=== PATIENT | male | born 1995 | race Caucasian/White ===

== ENCOUNTER 2018-06-07 21:23 | Emergency (ER) | payer SELFPAY ==
[~2018-06-07] VITALS: Ht 177.8 cm; Wt 68.0 kg
[2018-06-08 01:24] LABS: BASOPHILS % 0.7 % (0.0-2.0); HEMATOCRIT. 49.3 % (42.0-52.0); HEMOGLOBIN. 16.6 g/dL (14.0-18.0); LYMPHOCYTES % 15.9 % (20.0-50.0); MEAN CORPUSCULAR HEMOGLOBIN 31.1 pg (28.0-32.0); MEAN CORPUSCULAR VOLUME 92.6 fL (80.0-94.0); MEAN PLATELET VOLUME 9.4 fl (7.4-10.4); MONOCYTES % 5.4 % (2.0-8.0); PLATELET 282 x1000/uL (130-400); RED BLOOD CELL COUNT 5.33 mill/uL (4.7-6.1); RED CELL DISTRIBUTION WIDTH 13.2 % (11.6-14.6)
[2018-06-08 01:25] LABS: CHLORIDE 106 mEq/L (98-107)
[2018-06-08 01:29] LABS: ETHANOL BLOOD < 10 mg/dL
[2018-06-08 01:31] LABS: *AMPHETAMINES SCREEN URINE NEGATIVE (NEGATIVE); *BARBITURATES SCREEN URINE NEGATIVE (NEGATIVE); *BENZODIAZEPINES SCREEN URINE NEGATIVE (NEGATIVE)
[2018-06-08 01:32] LABS: *COCAINE SCREEN URINE NEGATIVE (NEGATIVE); CANNABINOID URINE SCREEN NEGATIVE (NEGATIVE); METHADONE URINE SCREEN NEGATIVE (NEGATIVE); OPIATES URINE SCREEN NEGATIVE (NEGATIVE); PHENCYCLIDINE URINE SCREEN NEGATIVE (NEGATIVE)
[2018-06-08] MEDS ORDERED: LORAZEPAM 2MG/ML CPJ IV ONE (01:45)
[2018-06-08] MEDS ORDERED: OLANZAPINE 10 MG/VIAL IM ONE (02:15)
[2018-06-08 14:50] VITALS: BP 128/64
== END 2018-06-08 14:52 | disposition home or self-care (01) ==
LOC: ER 21:23
DX: F30.8 Other manic episodes (principal)
CPT/HCPCS: 36415; 80048; 80305; 80307; 80320; 80329; 85025; 93005; 96372; 96374; 99284; J2060; J3490; Z7610; G0480